=== PATIENT | male | born 1980 | race American Indian/Alaskan Native ===

== ENCOUNTER 2018-03-15 19:01 | Emergency (ER) | payer OTHER, BC ==
[2018-03-15 19:46] VITALS: BP 121/78; PULSE 65; TEMP 98.2; O2SAT 100; BMI 24.3
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
[2018-03-15 20:03] VITALS: RESP 20
== END 2018-03-15 20:02 | disposition home or self-care (01) ==
LOC: C.ER 19:01
DX: S13.4XXA Sprain of ligaments of cervical spine, initial encounter (principal); V49.9XXA Car occupant (driver) (passenger) injured in unspecified traffic accident, initial encounter